=== PATIENT | female | born 1955 | race Two or more races ===

== ENCOUNTER 2017-09-07 23:22 | Emergency (ER) | payer OTHER ==
[~2017-09-07] VITALS: Ht 157.5 cm; Wt 77.1 kg
[~2017-09-07 23:22] MED LIST: AMBIEN PAK10 MG; ATIVAN1 MG; LEXAPRO5 MG; MIGRALAM CAPSUL1 CAP PO; OXYBUTYNIN CHLOR5 MG; SYNTHROID175 MCG PO; WELLBUTRIN XL300 MG PO; [UNRECOGNIZED DRUG - OTHER] PO
[2017-09-07] MEDS ORDERED: SEROQUEL25 MG (23:35)
== END 2017-09-08 11:15 | disposition home or self-care (01) ==
LOC: ER 23:22
DX: G25.89 Other specified extrapyramidal and movement disorders (principal); K29.60 Other gastritis without bleeding; R51 Headache; F41.8 Other specified anxiety disorders

== ENCOUNTER 2018-02-12 12:43 | Outpatient (CLI) | payer OTHER ==
[~2018-02-12 12:43] MED LIST changes: +SEROQUEL25 MG
== END 2018-02-12 12:51 | disposition home or self-care (01) ==
LOC: MAMO-SONO 12:43
DX: Z12.31 Encounter for screening mammogram for malignant neoplasm of breast (principal); Z87.898 Personal history of other specified conditions; Z12.39 Encounter for other screening for malignant neoplasm of breast; I10 Essential (primary) hypertension; E78.89 Other lipoprotein metabolism disorders; E03.8 Other specified hypothyroidism; E55.9 Vitamin D deficiency, unspecified; G62.89 Other specified polyneuropathies; F41.8 Other specified anxiety disorders; N39.3 Stress incontinence (female) (male); J40 Bronchitis, not specified as acute or chronic

== ENCOUNTER 2018-05-15 12:56 | Outpatient (CLI) | payer OTHER | END 2018-05-15 16:31 | disposition home or self-care (01) | LOC: RAD 12:56 | DX: M17.0 Bilateral primary osteoarthritis of knee (principal); M19.071 Primary osteoarthritis, right ankle and foot; M19.072 Primary osteoarthritis, left ankle and foot; M19.041 Primary osteoarthritis, right hand; M19.042 Primary osteoarthritis, left hand ==

== ENCOUNTER 2019-06-02 10:43 | Outpatient (CLI) | payer OTHER | END 2019-06-02 10:47 | disposition home or self-care (01) | LOC: SONOGRAMA 10:43 | DX: E78.89 Other lipoprotein metabolism disorders (principal); E03.8 Other specified hypothyroidism; E55.9 Vitamin D deficiency, unspecified; G62.89 Other specified polyneuropathies; F41.8 Other specified anxiety disorders; N39.3 Stress incontinence (female) (male); I11.9 Hypertensive heart disease without heart failure; F32.0 Major depressive disorder, single episode, mild; F32.89 Other specified depressive episodes; M25.50 Pain in unspecified joint; J20.8 Acute bronchitis due to other specified organisms; E04.2 Nontoxic multinodular goiter ==

== ENCOUNTER 2019-06-25 10:34 | Outpatient (CLI) | payer OTHER | END 2019-06-25 10:51 | disposition home or self-care (01) | LOC: NUCLEAR 10:34 | DX: M81.0 Age-related osteoporosis without current pathological fracture (principal); G62.89 Other specified polyneuropathies; E78.89 Other lipoprotein metabolism disorders; E03.8 Other specified hypothyroidism; E55.9 Vitamin D deficiency, unspecified; F41.8 Other specified anxiety disorders; N39.3 Stress incontinence (female) (male); J40 Bronchitis, not specified as acute or chronic; I11.9 Hypertensive heart disease without heart failure; F32.0 Major depressive disorder, single episode, mild; F32.89 Other specified depressive episodes; M25.50 Pain in unspecified joint ==

== ENCOUNTER 2019-06-25 10:50 | Outpatient (CLI) | payer OTHER | END 2019-06-25 10:57 | disposition home or self-care (01) | LOC: MAMO-SONO 10:50 | DX: E78.89 Other lipoprotein metabolism disorders (principal); E03.8 Other specified hypothyroidism; E55.9 Vitamin D deficiency, unspecified; G62.89 Other specified polyneuropathies; F41.8 Other specified anxiety disorders; J40 Bronchitis, not specified as acute or chronic; I11.9 Hypertensive heart disease without heart failure; F32.0 Major depressive disorder, single episode, mild; F32.89 Other specified depressive episodes; M25.50 Pain in unspecified joint; Z12.39 Encounter for other screening for malignant neoplasm of breast; Z12.31 Encounter for screening mammogram for malignant neoplasm of breast ==

== ENCOUNTER 2020-05-25 11:53 | Outpatient (CLI) | payer OTHER | END 2020-05-25 12:02 | disposition home or self-care (01) | LOC: RAD 11:53 | PROVIDERS: ATTEND Anesthesiology | DX: M25.562 Pain in left knee (principal) ==

== ENCOUNTER 2021-02-08 08:27 | Outpatient (CLI) | payer OTHER | END 2021-02-08 08:39 | disposition home or self-care (01) | LOC: MAMO-SONO 08:27 | PROVIDERS: ATTEND Internal Medicine | DX: R92.1 Mammographic calcification found on diagnostic imaging of breast (principal); Z12.31 Encounter for screening mammogram for malignant neoplasm of breast; E03.8 Other specified hypothyroidism; E78.2 Mixed hyperlipidemia; E78.3 Hyperchylomicronemia; F32.89 Other specified depressive episodes; I11.9 Hypertensive heart disease without heart failure; F41.8 Other specified anxiety disorders; G62.89 Other specified polyneuropathies; E78.89 Other lipoprotein metabolism disorders; F32.0 Major depressive disorder, single episode, mild; E66.8 Other obesity; M54.59 Other low back pain ==

== ENCOUNTER 2022-02-23 09:25 | Outpatient (CLI) | payer OTHER | END 2022-02-23 09:27 | disposition home or self-care (01) | LOC: RAD 09:25 | DX: M25.561 Pain in right knee (principal) ==